=== PATIENT | female | born 1995 | race Caucasian/White ===

== ENCOUNTER 2021-12-25 14:50 | Emergency (ER) | payer OTHER ==
[~2021-12-25] VITALS: Ht 157.5 cm; Wt 72.0 kg
[2021-12-25] MEDS ORDERED: ACETAMINOPHEN 325MG TABLET PO ONE (15:15)
[2021-12-25 15:18] VITALS: BP_DIAS 72
[2021-12-25] MEDS ORDERED: ALBUTEROL (0.5%) 2.5MG/0.5ML NEB HHN ONE (15:30)
[2021-12-25] MEDS ORDERED: ALBUTEROL 6.7GM HFA INHALER ORI ONE (16:00)
[2021-12-25 17:33] VITALS: BP_SYST 110
[2021-12-25] MEDS ORDERED: P20 MT (17:34)
[2021-12-25] MEDS ORDERED: IBUP-2029 MT (17:34)
[2021-12-25] MEDS ORDERED: PREDNISONE 20MG TABLET PO ONE (17:34)
[2021-12-25] MEDS ORDERED: ALBU6.7H15 INH (17:34)
== END 2021-12-25 17:44 | disposition home or self-care (01) ==
LOC: ER 14:50
DX: J40 Bronchitis, not specified as acute or chronic (principal); B34.9 Viral infection, unspecified; Z20.822 Contact with and (suspected) exposure to COVID-19; Z90.49 Acquired absence of other specified parts of digestive tract
CPT/HCPCS: 71045; 87426; 93005; 94640; 99285; J7512